=== PATIENT | male | born 1965 | race Caucasian/White ===

== ENCOUNTER 2019-11-27 22:43 | Emergency (ER) | payer SELFPAY ==
[~2019-11-27] VITALS: Ht 185.4 cm; Wt 113.6 kg
[2019-11-27 22:52] VITALS: Ht 185.4 cm; Wt 113.6 kg
[2019-11-27] MEDS ORDERED: GLUCOSAMINE HC500 MG PO (22:54)
[2019-11-27] MEDS ORDERED: TAMIFLU75 MG PO (23:29)
[2019-11-28 00:03] VITALS: BP 169/92
== END 2019-11-28 00:03 | disposition home or self-care (01) ==
LOC: D.ER 22:43
DX: J10.1 Influenza due to other identified influenza virus with other respiratory manifestations (principal); I10 Essential (primary) hypertension